=== PATIENT | male | born 2005 | race Caucasian/White ===

== ENCOUNTER 2024-01-21 09:31 | Emergency (ER) | payer SELFPAY ==
[2024-01-21 09:31] VITALS: BP 148/95; PULSE 96; RESP 16; TEMP 36.2; O2SAT 92; BMI 22.8
--- NOTE | 2024-01-21 09:40 | EDS_ITS ---
HPI History of Present Illness Chief Complaint: Shortness of Breath PFSH PFSH Home Medications ?Medication ?Instructions ?Recorded ?Last Taken ?Type prednisone 20 mg tablet 20 mg PO DAILY 5 days #5 tabs 01/21/24 Unknown Rx promethazine 25 mg tablet 25 mg PO Q4H PRN nausea and 01/21/24 01/20/24 History vomiting sertraline 25 mg tablet 25 mg PO DAILY 01/21/24 01/21/24 History trazodone 50 mg tablet 100 mg PO .hs PRN sleep 01/21/24 01/20/24 History Allergy/AdvReac Type Severity Reaction Status Date / Time No Known Allergies Allergy Verified 01/21/24 10:08 Social History Smoking Status: Never smoker EXAM Physical Exam Const Vital Signs: 01/21/24 09:31 01/21/24 09:44 01/21/24 10:06 Temperature 97.2 F L Temperature Source Temporal Pulse Rate 96 Respiratory Rate 16 Respiratory Effort Short of Breath Respiratory Depth Normal Respiratory Pattern Normal Blood Pressure 148/95 H Blood Pressure Mean 112 Pulse Ox 92 99 Oxygen Delivery Method Room Air Room Air Room Air 01/21/24 11:31 01/21/24 11:50 Temperature 97.7 F L Temperature Source Pulse Rate 79 79 Respiratory Rate 15 16 Respiratory Effort Respiratory Depth Respiratory Pattern Blood Pressure 114/76 114/76 Blood Pressure Mean 88 88 Pulse Ox 97 97 Oxygen Delivery Method Room Air MDM MDM MDM Narrative Medical decision making narrative: HISTORY OF PRESENT ILLNESS: 18 M here for SOB, CP, Elevated D-dimer. Concern for PE. HE was sent by his PCP. Notes symptoms going on for the last year. Worse over last 2 weeks. States he is followed with his outpatient physician and they were labs ordered which showed elevated D-dimer. Given his symptoms he was told to come into the ED to rule out pulmonary embolism. REVIEW OF SYSTEMS: Pertinent positives: Shortness of breath, chest pain, dyspnea on exertion Pertinent negatives: Syncope, leg swelling, PHYSICAL EXAM: Nursing triage notes reviewed, Vital signs reviewed Constitutional: please see mdm HENT: MMM Eyes: Pupils equal round and reactive to light, Extraocular muscles intact Neck: No stridor, no JVD, full neck ROM Lungs: Clear to auscultation, No wheezing or rales. No increased work of breathing, no conversational dyspnea, no accessory muscle use, no nasal flaring. No respiratory distress noted Heart: Regular rate and rhythm, No murmurs, No rubs and No gallops, 2+ distal pulses (radial, femoral, posterior tibial) in all extremities Abdomen: Soft, there is no tenderness, rigidity, rebound or guarding, no obvious peritoneal signs, no palpable pulsatile abdominal masses, no auscultated abdominal bruit : No CVAT Extremities: No edema, no stigmata of VTE or calf tenderness Neuro: No focal neurological deficits, cranial nerves II through XII intact, 5/5 strength in all extremities. Intact sensation to light touch in all extremities, 2+ reflexes bilateral patella tendons. Normal gait. No ataxia. Skin: No rash or lesions noted MEDICAL DECISION MAKING: Chief Complaint: Chest pain, shortness of breath, elevated D-dimer External records reviewed: No records noted in [facility]. Reviewed outpatient labs. CK-MB was negative, troponin was negative, BNP was negative, D-dimer was elevated at 0.72 mcg/mL per FEU, CBC with no leukocytosis, no anemia or thrombocytopenia, BMP without evidence of significant [place] normalities, evidence of acute kidney injury, liver dysfunction, Lyme disease negative, BRIE was negative, allergy testing was negative, ESR and CRP were negative Factors affecting care: History of COVID otherwise no other past medical history Social determinants of health: No drugs History obtained from others: The patient's father Consults: none MDM Narrative: Patient was initially hemodynamically stable, afebrile and nontoxic-appearing. Exam without focal cardiopulmonary abnormalities. No stigmata of VTE I considered the following differential diagnosis: PE, ACS, arrhythmia, anemia, electro disturbance, dehydration, long COVID I obtained a broad lab and imaging workup to further elucidate the etiology the patient complaints. ALL IMAGES (IF OBTAINED) HAVE BEEN PERSONALLY REVIEWED AND INTERPRETED BY MYSELF. EKG wiht NS rhythm, normal axis, normal intervals, no STEMI, no signs of right heart strain no signs of WPW, ARVD or Brugada syndrome, no stigmata of pericarditis CT of the chest is negative for PE High-sensitivity troponin is negative, no evidence of myocardial ischemia BNP negative making heart failure less likely BMP with mild hyponatremia, no other electrolyte disturbances, The synthesis of the patient's history, physical exam, labs images suggest no acute life-limiting etiology. Specifically no signs of PE, arrhythmia, ACS, anemia electrolyte disturbance or significant dehydration. I suspect based on patient's prolonged symptoms after madeleine COVID-19 related to a long COVID syndrome or other similar issue. There is no indication for hospitalization or further testing at this time. Patient was referred to tertiary care long COVID specialist. The patient and/or family, caregivers express understanding. The patient and/or family, caregivers agrees with the plan. Shared decision making: I will have a discussion with the patient and or visitors regarding risk/benefits of further testing or admission. They will be made aware of of the risk/benefits inherent in this decision they will be given the opportunity to voice understanding. Total critical care time today provided was at least 0 minutes. This excludes separately billable procedures. Critical care time (if documented) is secondary to the patient having high probability of clinically significant/life threatening deterioration in the patient's condition which required my urgent intervention. Impression: 1. Chest pain 2. Shortness of breath 3. History of COVID-19 Dispo: Discharge This note was generated with [employer] dictation software. It may contain incorrect words, spelling, and punctuation that were not noted in review of the chart prior to signing. Lab Data Labs: Laboratory Results - last 24 hr 01/21/24 09:45 WBC 5.4 RBC 5.09 Hgb 16.0 Hct 44.8 MCV 88.0 MCH 31.4 MCHC 35.7 RDW Std Deviation 39.7 RDW Coeff of Chas[place] 12.3 Plt Count 187 MPV 9.9 Immature Gran % (Auto) 0.200 Neut % (Auto) 53.7 Lymph % (Auto) 33.2 [place] % (Auto) 11.4 H Eos % (Auto) 1.3 Baso % (Auto) 0.2 Absolute Neuts (auto) 2.9 Absolute Lymphs (auto) 1.78 Nucleated RBC % 0 Sodium 135 L Potassium 4.1 Chloride 100 Carbon Dioxide 29.0 Anion Gap 6 BUN 10 Creatinine 1.00 Estim Creat Clear Calc 117.00 Est GFR (MDRD) Af Amer 122 Est GFR (MDRD) Non-Af 101 BUN/Creatinine Ratio 10.0 Glucose 117 H Calcium 9.7 Troponin I High Sens 6 B-Natriuretic Peptide < 2.0 Radiography Diagnostic Testing: Clinical Impression(s) from Imaging Studies Chest CTA 01/21/24 09:42 IMPRESSION: Normal CTA chest examination, without a demonstrated pulmonary embolism or arterial dissection. Electronically Signed: Juan Bustillos MD at 10:58 EDT , Discharge Plan Triage Chief Complaint: Shortness of Breath ED Provider: Cristhian Quan Dx/Rx/DC Orders Instructions: ED Dyspnea Prescriptions: New prednisone 20 mg tablet 20 mg PO DAILY 5 Days Qty: 5 0RF No Action trazodone 50 mg tablet 100 mg PO .hs PRN (Reason: sleep) sertraline 25 mg tablet 25 mg PO DAILY promethazine 25 mg tablet 25 mg PO Q4H PRN Primary Care Provider: Amanuel Hubbard Referrals: Amanuel Hubbard PA-C [Primary Care Provider] - Activity Restrictions/Additional Instructions: Thank you for trusting us with your care today! Your labs, images today were negative for signs of acute life-threatening issue specifically no sign of acute pulmonary embolism (blood clot in the lung). I suspect your symptoms are related to long COVID Please take Tylenol (2 pills, 650 mg), ibuprofen (2 pills, 400 mg) every 6 hours as needed for pain and fever control. You have been prescribed prednisone which is an anti-inflammatory medicine which should improve symptoms related to increased inflammation in the body including polymyositis or long COVID. Please return to the emergency department if your symptoms change or worsen. Please follow with your primary care physician for further outpatient evaluation and management. Please call the [facility] through [facility] for COVID-19 recovery assistance. Appointments can be scheduled at the following number: [phone] Print Language: Setswana Disposition Disposition: Home, Self Care Discharge Date/Time: 01/21/24 11:51
--- NOTE | 2024-01-21 09:42 | CT_ITS ---
STUDY: CTA CHEST REASON FOR EXAM: Male, 18 years old. SOB, CP RADIATION DOSAGE (If Supplied By Facility): CTDIvol = ( 7.24 ) mGy, DLP = ( 276.58 ) mGycm TECHNIQUE: The examination was performed with the intravenous administration of IV 75mL [id number]-370. Post-processing of the angiographic images was performed, with multiplanar reformation and 3D reconstruction. Individualized dose optimization techniques were used for this CT. COMPARISON: None. FINDINGS: Normal enhancement of the main pulmonary artery and right and left pulmonary arteries. Normal enhancement of the bilateral peripheral pulmonary arteries. There is no demonstrated pulmonary embolism. Normal thoracic aorta and visualized great vessels. There is no demonstrated aortic dissection. Normal heart and pericardium. Normal mediastinum. Normal hilar regions. Normal visualized trachea and bronchi. The lungs are well expanded. Normal pulmonary parenchyma. Normal pleura. Normal chest wall structures. Normal osseous structures. Normal visualized upper abdomen. CT/CTA Chest W/WO Contrast IMPRESSION: Normal CTA chest examination, without a demonstrated pulmonary embolism or arterial dissection. Electronically Signed: Juan Bustillos MD at 10:58 EDT ,
[2024-01-21 09:44] VITALS: O2SAT 99
--- NOTE | 2024-01-21 09:44 | EKG12_ITS ---
Test Reason : SOB Blood Pressure : / mmHG Vent. Rate : 092 BPM Atrial Rate : 092 BPM P-R Int : 126 ms QRS Dur : 080 ms QT Int : 338 ms P-R-T Axes : 075 086 021 degrees QTc Int : 417 ms Normal sinus rhythm Normal ECG Confirmed by BAUTISTA RUDOLPH, ALEXANDRU ([id number]), visual effects editor PAYTON DE OLIVEIRA ([id number]) on 01/27/2024 1:35:18 PM Referred By: RAMON/MARY ELLEN Confirmed By:ROSSY BAUM MD
[2024-01-21 09:54] LABS: Absolute Lymphocyte Count 1.78 X10^3/uL (0.83-4.51); Absolute Neutrophil Count 2.9 X10^3/uL (2.0-7.7); Basophil# 0.01 X10^3/uL; Basophil% 0.2 % (0-1); Eosinophil# 0.07 X10^3/uL; Eosinophils% 1.3 % (0-5); Hematocrit 44.8 % (40-54); Lymphocyte # 1.78 X10^3/ul (0.83-4.51); Lymphocyte % 33.2 % (19-41); Mean Corp Hgb Conc 35.7 g/dL (32-36); Mean Corpuscular Hgb 31.4 pg (27.0-32.0); Mean Platelet Vol. 9.9 fl (6.2-12.0); Monocyte# 0.61 X10^3/uL; Monocyte% 11.4 % (0-10); NRBC Flagged by Analyzer 0 % (0-5); Neutrophil # 2.88 X10^3/uL (2.7-7.7); Neutrophil % 53.7 % (47-70); Platelet Count 187 K/mm3 (150-450); RBC Distribution Width CV 12.3 % (11.6-14.6); RBC Distribution Width SD 39.7 fl (35.1-43.9); Red Blood Count 5.09 M/mm3 (4.6-6.2); White Blood Count 5.4 K/mm3 (4.4-11.0)
[2024-01-21 10:06] VITALS: O2SAT 98
[2024-01-21 10:09] LABS: Anion Gap 6 (5-15); BUN 10 mg/dL (7-18); Calcium,Total 9.7 mg/dL (8.5-10.1); Chloride 100 mmol/L (98-107); EST Glomerular Filtration Rate 101 mL/min (>60); Est Glom Filt Rate - Afr Amer 122 mL/min (>60); Glucose 117 mg/dL (74-106); Potassium 4.1 mmol/L (3.5-5.1); Sodium Level 135 mmol/L (136-145); Troponin-I HS 6 pg/mL (3.0-78.0)
[2024-01-21 10:24] LABS: BNP,B-Type NATRIURETIC PEPTIDE < 2.0 pg/mL (0-100)
[2024-01-21 11:31] VITALS: BP 114/76; PULSE 79; RESP 15; O2SAT 97
[2024-01-21 11:50] VITALS: BP 114/76; PULSE 79; RESP 16; TEMP 36.5; O2SAT 97
== END 2024-01-21 11:51 | disposition home or self-care (01) ==
PROVIDERS: Emergency Provider Emergency Medicine; PCP Physician Assistant; Visit Provider Emergency Medicine
DX: R06.02 Shortness of breath (principal); R07.9 Chest pain, unspecified; Z86.16 Personal history of COVID-19
CPT/HCPCS: 71275; 80048; 83880; 84484; 85025; 93005; 99284; Q9967; A4216